=== PATIENT | male | born 1950 | race Caucasian/White ===

== ENCOUNTER 2017-01-30 14:10 | Inpatient (IN) | payer MEDICARE, OTHER ==
[~2017-01-30] VITALS: Ht 177.8 cm; Wt 92.1 kg
[~2017-01-30 14:10] MED LIST: ASPI-515 PO; CHOL20002 PO; KRIL500C PO; NABU500T PO; RED600CA2 PO
[2017-01-30] MEDS ORDERED: NITROGLYCERIN 5 MG/ML, 10ML ONE (14:17)
[2017-01-30] MEDS ORDERED: VERAPAMIL 2.5 MG/ML, 2ML ONE (14:17)
[2017-01-30] MEDS ORDERED: FENTANYL PF 100 MCG/2ML ONE (14:17)
[2017-01-30] MEDS ORDERED: MIDAZOLAM 1 MG/ML, 5ML ONE (14:17)
[2017-01-30] MEDS ORDERED: HEPARIN 1,000 UNITS/ML, 10ML ONE (14:17)
[2017-01-30] MEDS ORDERED: BIVALIRUDIN 250 MG ONE (14:17)
[2017-01-30] MEDS ORDERED: LIDOCAINE 2%, 20ML ONE (14:17)
[2017-01-30] MEDS ORDERED: PRASUGREL 10 MG TABLET ONE (14:19)
[2017-01-30] MEDS ORDERED: TICAGRELOR 90 MG TABLET ONE (14:34)
[2017-01-30 14:51] LABS: HEMATOCRIT 47.3 % (39.2-51.8); HEMOGLOBIN 16.4 g/dL (13.7-18.0); WHITE BLOOD COUNT 6.7 x10^3/uL (3.4-10)
[2017-01-30] MEDS ORDERED: NITROGLYCERIN 0.4 MG BOTTLE (25 TABS) SL PRN (15:00)
[2017-01-30] MEDS ORDERED: morphine SULFATE 10 MG/ML, 1ML IVPush PRN (15:00)
[2017-01-30] MEDS ORDERED: ZOLPIDEM 5MG TABLET PO PRN (15:00)
[2017-01-30] MEDS ORDERED: NITROGLYCERIN 0.4 MG/SPRAY SL PRN (15:00)
[2017-01-30] MEDS ORDERED: BISACODYL 10 MG SUPP PR PRN (15:00)
[2017-01-30] MEDS ORDERED: BISACODYL 5 MG EC TABLET PO PRN (15:00)
[2017-01-30] MEDS ORDERED: ACETAMINOPHEN 325 MG TABLET PO PRN (15:00)
[2017-01-30] MEDS ORDERED: ONDANSETRON 2MG/ML, 2ML IVPush PRN (15:00)
[2017-01-30] MEDS ORDERED: BIVALIRUDIN 250 MG in DEXTROSE 5% 50 ML IV SCH (15:19)
[2017-01-30] MEDS ORDERED: SODIUM CHLORIDE 0.9% 1,000 ML IV SCH (15:19)
[2017-01-30] MEDS ORDERED: ASPIRIN 81 MG TABLET EC PO ONE (15:30)
[2017-01-30] MEDS ORDERED: PLEASE ENTER HEIGHT AND WEIGHT MC SCH ×2 (16:00→16:30)
[2017-01-30] MEDS ORDERED: PLEASE ENTER ALLERGIES MC SCH ×2 (16:30)
[2017-01-30 17:41] VITALS: BP 119/73
[2017-01-30] MEDS ORDERED: POTASSIUM CHLORIDE 20 MEQ TAB.ER.PRT PO ONE (18:30)
[2017-01-30] MEDS: CARVEDILOL 6.25 MG TABLET PO SCH (18:32)
[2017-01-30 18:55] LABS: IS PT STATUS REG ER OR PRE ER? NO
[2017-01-30] MEDS: ENOXAPARIN 40 MG/0.4 ML SQ SCH (20:25)
[2017-01-30] MEDS: TICAGRELOR 90 MG TABLET PO SCH (20:25)
[2017-01-30] MEDS ORDERED: TEMPLATE NON-FORMULARY MED. (Red Yeast Rice** 600 MG) PO SCH (21:00)
[2017-01-30] MEDS ORDERED: ATORVASTATIN 80 MG TABLET PO SCH ×2 (21:00)
[2017-01-30 22:08] LABS: IS PT STATUS REG ER OR PRE ER? NO
[2017-01-31 01:10] LABS: IS PT STATUS REG ER OR PRE ER? NO
[2017-01-31 04:41] LABS: HEMATOCRIT 46.2 % (39.2-51.8); HEMOGLOBIN 15.8 g/dL (13.7-18.0); WHITE BLOOD COUNT 8.9 x10^3/uL (3.4-10)
[2017-01-31 04:48] LABS: BLOOD UREA NITROGEN 13 mg/dL (7-18)
[2017-01-31 05:08] LABS: ASPARTATE AMINO TRANSFERASE 217 U/L (15-37)
[2017-01-31 05:11] LABS: IS PT STATUS REG ER OR PRE ER? NO
[2017-01-31] MEDS: CARVEDILOL 6.25 MG TABLET PO SCH ×3 (05:58→17:50)
[2017-01-31] MEDS ORDERED: TEMPLATE NON-FORMULARY MED. (Krill Oil 500 MG) PO SCH (09:00)
[2017-01-31] MEDS: ASPIRIN 81 MG TABLET EC PO SCH (10:17)
[2017-01-31] MEDS: TICAGRELOR 90 MG TABLET PO SCH ×2 (10:17→20:21)
[2017-01-31] MEDS: CHOLECALCIFEROL 1,000 UNIT TABLET PO SCH (10:17)
[2017-01-31] MEDS: LOSARTAN 25MG TABLET PO SCH (10:18)
[2017-01-31 15:47] VITALS: BP 98/59
[2017-01-31 20:04] VITALS: BP 121/74
[2017-01-31] MEDS: ENOXAPARIN 40 MG/0.4 ML SQ SCH (20:20)
[2017-01-31] MEDS ORDERED: ATORVASTATIN 10 MG TABLET PO SCH (21:00)
[2017-02-01 02:06] VITALS: BP 124/76
[2017-02-01] MEDS ORDERED: LOSA25TA2 PO (08:40)
[2017-02-01] MEDS ORDERED: ATOR10TA9 PO (08:40)
[2017-02-01] MEDS ORDERED: TICA90TA PO (08:40)
[2017-02-01] MEDS ORDERED: CARV6.2512 PO (08:40)
[2017-02-01] MEDS: LOSARTAN 25MG TABLET PO SCH (09:00)
[2017-02-01] MEDS: CARVEDILOL 6.25 MG TABLET PO SCH (09:48)
[2017-02-01] MEDS: ASPIRIN 81 MG TABLET EC PO SCH (09:48)
[2017-02-01] MEDS: CHOLECALCIFEROL 1,000 UNIT TABLET PO SCH (09:48)
[2017-02-01] MEDS: TICAGRELOR 90 MG TABLET PO SCH (09:48)
[2017-02-01 10:00] VITALS: BP 107/72
== END 2017-02-01 11:06 | disposition home or self-care (01) | DRG 247 ==
LOC: EDBD 14:10 → MERGE 14:10 → ED 14:15 → EDIP 14:16 → ED 15:32 → CCU 15:45 → 5SO 01-31 11:47 → DCLOUNGE 02-01 10:35
PROVIDERS: ADMIT Internal Medicine Cardiovascular Disease; ATTEND Internal Medicine Cardiovascular Disease
PROC: 4A023N7 Measurement of Cardiac Sampling and Pressure, Left Heart, Percutaneous Approach (ICD-10-PCS; principal; 2017-01-30)
PROC: B2111ZZ Fluoroscopy of Multiple Coronary Arteries using Low Osmolar Contrast (ICD-10-PCS; 2017-01-30)
PROC: B2151ZZ Fluoroscopy of Left Heart using Low Osmolar Contrast (ICD-10-PCS; 2017-01-30)
PROC: 027036Z Dilation of Coronary Artery, One Artery with Three Drug-eluting Intraluminal Devices, Percutaneous Approach (ICD-10-PCS; 2017-01-30)
DX: I21.19 ST elevation (STEMI) myocardial infarction involving other coronary artery of inferior wall (principal); E78.5 Hyperlipidemia, unspecified; I10 Essential (primary) hypertension; G89.29 Other chronic pain; Z79.82 Long term (current) use of aspirin; Z82.49 Family history of ischemic heart disease and other diseases of the circulatory system; Z87.891 Personal history of nicotine dependence; Z95.5 Presence of coronary angioplasty implant and graft; Z91.048 Other nonmedicinal substance allergy status; M54.9 Dorsalgia, unspecified; I25.119 Atherosclerotic heart disease of native coronary artery with unspecified angina pectoris
CPT/HCPCS: 36415; 71010; 80047; 80053; 80061; 84484; 85025; 85610; 85730; 87081; 93005; 93306; 93458; 99156; 99157; 99291; C1760; C1769; C1894; J0583; J1644; J1650; J2250; J3010; J3490; C1725; C1874; C1887; Q9967